=== PATIENT | female | born 1940 | race Two or more races ===

== ENCOUNTER 2017-08-10 09:50 | Emergency (ER) | payer OTHER ==
[2017-08-10 10:08] VITALS: TEMP 98.6; BMI 27.4
--- NOTE | 2017-08-10 10:20 | PDOC ---
History of Present Illness - General Chief Complaint: Respiratory Stated Complaint: COUGH, BODY ACHES Time Seen by Provider: 08/10/17 10:00 - History of Present Illness Initial Comments: 08/10/17 11:35 Chief complaint fever congestion body aches cough History of present illness: 76 years old past medical history significant for diabetes hypertension or cholesterol presents to the emergency department with three-day history of fever or chills body aches running nose congestion cough. Patient's son had similar symptoms. Symptoms are moderate persistent constant no exacerbating or alleviating factors. Patient is taking DayQuil and NyQuil with no significant relief. No severe headache, mild chest pain but only when coughing. Not persistent constant nonexertional no associated dizziness lightheadedness nausea vomiting or diarrhea Patient also states that one of her blood pressure medications the shape of the pill had been changed and therefore she has stopped taking it for the past several weeks. Upon arrival to the emergency Department patient with elevated blood pressure. Past History - Past Medical History Allergies/Adverse Reactions: Allergies Allergy/AdvReac Type Severity Reaction Status Date / Time No Known Allergies Allergy Verified 08/10/17 09:51 Home Medications: Ambulatory Orders Albuterol Sulfate Inhaler - [Ventolin Hfa Inhaler -] 1 - 2 inh PO Q4H #1 inhaler 08/10/17 Calcium Carbonate/Vitamin D3 [Calcium 600 + Vit D Tablet] 1 tab PO DAILY Lisinopril [Prinivil -] 40 mg PO DAILY 08/10/17 Metformin HCl 500 mg PO BID 08/10/17 Nifedipine ER [Procardia Xl -] 60 mg PO DAILY 08/10/17 COPD: No Diabetes: Yes HTN: Yes - Suicide/Smoking/Psychosocial Hx Smoking History: Never smoked Have you smoked in the past 12 months: No Hx Alcohol Use: No Drug/Substance Use Hx: No Review of Systems - Review of Systems Comments:: 08/10/17 11:37 ROS: A complete review of 10 out of 10 review of systems is taken and is negative apart from what is previously mentioned below and in the HPI. *Physical Exam - Vital Signs Last Vital Signs Temp Pulse Resp BP Pulse Ox 98.6 F 98 H 18 222/101 97 08/10/17 09:50 08/10/17 09:50 08/10/17 09:50 08/10/17 09:50 08/10/17 09:50 - Physical Exam Comments: 08/10/17 11:37 Vitals: Triage Vital signs reviewed General Appearance: no acute distress, well nourished well developed, Head: Atraumatic, Eyes: Pupils equal reactive round, extraocular movement intact Ears: TM's normal bilaterally; Nose: Nares patent bilaterally;+ nasal congestion Throat: Posterior oropharynx without erythema, mucous membranes moist, Neck: Supple;No Nucal rigidity Chest Wall: Nontender Cardiac: Regular rate and rhythym, no murmurs, no rubs, no gallops, Lungs: Bronchospasm with cough good air movement bilaterally, Abdomen: Soft, non distended, normal bowel sounds, non tender to palpation Extremities: Full range of motion to all extremities, no cyanosis, clubbing, or edema Skin: Warm and dry, no rashes or lesions, no rash, no petechiae Neuro: AOX3; Cranial Nerves 2-12 grossly intact, Strength intact to all extremities, Sensation intact to all extremities,gait normal Psych: normal mood, normal affect Heart Score/ECG Review - ECG Impressions Comment:: 08/10/17 11:38 EKG performed at 11 AM demonstrated a rate of 85 a rhythm of sinus rhythm axis is normal there are no significant ST elevations or T-wave inversions Interpreted by me No ST elevations no T-wave inversions Medical Decision Making - Medical Decision Making 08/10/17 11:39 76 years old hypertension diabetes high cholesterol noncompliant with hypertensive medications presents to the ED with influenza-like symptoms Differential diagnosis includes influenza, URI, pneumonia less likely ACS given chest pain only with cough however given age and risk factors we'll check labs EKG troponin chest x-ray DuoNeb for cough observe and reassess 08/10/17 12:20 non ischemic EKG troponin negative blood pressure improved after patient takes her home blood pressure medication History examination consistent with influenza-like illness. We will prescribed Ventolin MDI patient will follow-up with her primary care provider tomorrow for repeat blood pressure check Findings, the need for follow-up, strict return instructions discussed with patient. 08/10/17 18:18 *DC/Admit/Observation/Transfer Diagnosis at time of Disposition: Influenza-like illness - Discharge Dispostion Disposition: HOME Condition at time of disposition: Stable Admit: No - Prescriptions Prescriptions: Albuterol Sulfate Inhaler - [Ventolin Hfa Inhaler -] 1 - 2 inh PO Q4H #1 inhaler - Referrals - Patient Instructions Printed Discharge Instructions: Influenza Additional Instructions: Ventolin MDI as prescribed. Drink plenty of fluids. Take all home medications as prescribed. Alternate Tylenol Motrin every 3 hours as directed on package as needed for fever chills or body aches. Follow-up with your primary care provider this week. Return to the emergency department for any severe worsening symptoms or for any concerns. - Post Discharge Activity
[2017-08-10] MEDS ORDERED: ALBUTEROL SO4 2.5/IPRATROPIUM 0.5 INH SOL 3 ML VIAL.NEB. NEB ONE ×2 (10:21→10:48)
[2017-08-10] MEDS ORDERED: ACETAMINOPHEN 500 MG TABLET (FP) PO ONE (10:21)
[2017-08-10] MEDS ORDERED: ACETAMINOPHEN 500 MG TABLET (FP) ONE (10:49)
[2017-08-10 12:26] VITALS: BP 133/68; PULSE 93
--- NOTE | 2017-08-11 07:55 | EKG ---
Test Reason : Blood Pressure : / mmHG Vent. Rate : 085 BPM Atrial Rate : 085 BPM P-R Int : 140 ms QRS Dur : 070 ms QT Int : 352 ms P-R-T Axes : 063 012 019 degrees QTc Int : 418 ms NORMAL SINUS RHYTHM POSSIBLE LEFT ATRIAL ENLARGEMENT NONSPECIFIC ST ABNORMALITY ABNORMAL ECG NO PREVIOUS ECGS AVAILABLE Confirmed by CHAYA SPRINGER, YEIMI ([id number]) on 08/11/2017 7:54:38 AM Referred By: JOSÉ LUIS FOX Confirmed By:YEIMI LARKIN MD
== END 2017-08-10 13:00 | disposition home or self-care (01) ==
LOC: FER 09:50
PROC: 3E0F7GC Introduction of Other Therapeutic Substance into Respiratory Tract, Via Natural or Artificial Opening (ICD-10-PCS; principal; 2017-08-10)
DX: J11.1 Influenza due to unidentified influenza virus with other respiratory manifestations (principal); I10 Essential (primary) hypertension; E11.9 Type 2 diabetes mellitus without complications; Z79.84 Long term (current) use of oral hypoglycemic drugs
CPT/HCPCS: 36415; 71045-TC-FY; 84484; 93005; 94640; 99283-25